=== PATIENT | female | born 1985 | race Caucasian/White ===

== ENCOUNTER → 2017-03-01 | Outpatient (CLI) | payer BC ==
--- NOTE | 2017-03-01 17:35 | RADIOLOGY REPORT PS360 ---
US BREAST-RT COMPLETE W/AXILLA COMPARISON: None INDICATION: Palpable nodule right breast ORDERING PHYSICIAN: Casa Paredes MD PATIENT AGE: 31 years TECHNIQUE: Standard ultrasound FINDINGS: There is a 1 x 1 x 0.5 cm cyst in the one o'clock region of the right breast. In addition, there is a 4 mm cyst at 3:00 near the nipple. There is a 2.7 x 2.3 x 1 cm cyst in the 11:00 region of the right breast corresponding to the palpable abnormality. Axillary images show small nodes. No suspicious nodules evident. IMPRESSION: Multiple right breast cysts the largest of which corresponds to the palpable abnormality at 11:00 at 2.7 x 2.3 cm BI-RADS CATEGORY: 2_Benign RECOMMENDED FOLLOWUP: As clinically warranted (A letter has been sent to the patient regarding results of the study.)
== END ==
LOC: RAD 15:00
DX: N63.10 Unspecified lump in the right breast, unspecified quadrant (principal)